=== PATIENT | male | born 1985 | race Caucasian/White ===

== ENCOUNTER 2017-07-07 04:13 | Emergency (ER) | payer BC, OTHER ==
[2017-07-07] MEDS ORDERED: ONDANSETRON 4 MG/2 ML VIAL IM STA (04:33)
[2017-07-07] MEDS ORDERED: ONDANSETRON 4 MG ODT STARTER PACK 2 TAB BTL PO STA (04:35)
--- NOTE | 2017-07-07 04:35 | ED ---
General Adult HPI - General Chief complaint: Dental/Oral Stated complaint: Dental Pain,vomiting Time Seen by Provider: 07/07/17 04:20 Source: patient, RN notes reviewed Mode of arrival: ambulatory Limitations: no limitations - History of Present Illness Initial comments: This is a 31-year-old male who presented to the emergency department complaining of vomiting 2 which started 2 hours ago. Patient denies any abdominal pain. Patient denies any diarrhea. Patient states his right sternocleidomastoid muscle is tender to palpation and he may have strained it from vomiting. Patient denies any fever or chills. Patient denies any chest pain difficulty breathing shortness of breath. Patient denies any injury or trauma that he knows of. Patient states she's not been around anyone is sick. - Related Data Previous Rx's Medication Instructions Recorded Hydrocodone/Acetaminophen [[place] 1 each PO Q6HR PRN #20 tab 09/19/16 5-325] Ibuprofen [Motrin] 600 mg PO Q6HR PRN #40 day 09/19/16 Ondansetron Odt [Zofran ODT] 4 mg PO Q8HR PRN #15 tab 09/19/16 Sulfamethoxazole/Trimethoprim 1 each PO Q12H 7 Days 09/19/16 [Bactrim DS 800-160 mg] Tamsulosin [Flomax] 0.4 mg PO DAILY #3 cap 09/19/16 Allergies Allergy/AdvReac Type Severity Reaction Status Date / Time Penicillins Allergy Rash/Hives Verified 09/19/16 14:41 venom-honey bee Allergy Swelling Verified 09/19/16 14:41 [bee venom (honey bee)] Review of Systems ROS Statement: Those systems with pertinent positive or pertinent negative responses have been documented in the HPI. ROS Other: All systems not noted in ROS Statement are negative. Past Medical History Past Medical History: No Reported History History of Any Multi-Drug Resistant Organisms: None Reported Past Surgical History: No Surgical Hx Reported Additional Past Surgical History / Comment(s): l testicle removed Past Psychological History: Anxiety Smoking Status: Current every day smoker Past Alcohol Use History: Occasional Past Drug Use History: Marijuana General Exam - General Exam Comments Initial Comments: GENERAL: Patient is well-developed and well-nourished. Patient is nontoxic and well- hydrated and is in mild distress. ENT: Neck is soft and supple. No significant lymphadenopathy is noted. Oropharynx is clear. Moist mucous membranes. Neck has full range of motion without eliciting any pain. EYES: The sclera were anicteric and conjunctiva were pink and moist. Extraocular movements were intact and pupils were equal round and reactive to light. Eyelids were unremarkable. PULMONARY: Unlabored respirations. Good breath sounds bilaterally. No audible rales rhonchi or wheezing was noted. CARDIOVASCULAR: There is a regular rate and rhythm without any murmurs gallops or rubs. ABDOMEN: Soft and nontender with normal bowel sounds. No palpable organomegaly was noted. There is no palpable pulsatile mass. SKIN: Skin is clear with no lesions or rashes and otherwise unremarkable. NEUROLOGIC: Patient is alert and oriented x3. Cranial nerves II through XII are grossly intact. Motor and sensory are also intact. Normal speech, volume and content. Symmetrical smile. MUSCULOSKELETAL: Normal extremities with adequate strength and full range of motion. LYMPHATICS: No significant lymphadenopathy is noted PSYCHIATRIC: Normal psychiatric evaluation. Limitations: no limitations Course Vital Signs 07/07/17 04:18 Temperature 97.8 F Pulse Rate 67 Respiratory 16 Rate Blood Pressure 130/85 O2 Sat by Pulse 100 Oximetry Medical Decision Making - Medical Decision Making patient only started vomiting 2 hours ago psychiatric shot of Zofran and sent him home with some Zofran ODT Disposition Clinical Impression: Acute vomiting Disposition: HOME SELF-CARE Instructions: Acute Nausea and Vomiting (ED) Referrals: None,Stated [Primary Care Provider] - 1-2 days Time of Disposition: 04:35
[2017-07-07 04:39] VITALS: BP 130/85; PULSE 67; RESP 16; TEMP 97.8
== END 2017-07-07 04:42 | disposition home or self-care (01) ==
LOC: EC 04:13
DX: R11.10 Vomiting, unspecified (principal); F17.200 Nicotine dependence, unspecified, uncomplicated; Z88.0 Allergy status to penicillin; Z91.030 Bee allergy status
CPT/HCPCS: 99283; 96372; J2405; S0119

== ENCOUNTER 2017-11-08 07:41 | Emergency (ER) | payer BC ==
--- NOTE | 2017-11-08 08:24 | ED ---
General Adult HPI - General Chief complaint: ENT Stated complaint: Ear pain Time Seen by Provider: 11/08/17 08:14 Source: patient, RN notes reviewed Mode of arrival: ambulatory Limitations: no limitations - History of Present Illness Initial comments: 32-year-old male who presents emergency room today with a chief complaint of pain to the right ear. He does admit that it's felt full as pressure. States he has been trying some peroxide with little relief. He does admit that he's had some pressure similar to this in the past but has not been getting any the wax out. Patient denies any other complaints or symptoms. Patient denies any recent fever, chills, shortness of breath, chest pain, back pain, abdominal pain , nausea or vomiting, headaches or visual changes, or any other complaints. - Related Data Previous Rx's Medication Instructions Recorded Carbamide Peroxide [Debrox Otic] 5 drops BOTH EARS BID 7 Days ml 11/08/17 Allergies Allergy/AdvReac Type Severity Reaction Status Date / Time Penicillins Allergy Rash/Hives Verified 11/08/17 08:30 venom-honey bee Allergy Swelling Verified 11/08/17 08:30 [bee venom (honey bee)] Review of Systems ROS Statement: Those systems with pertinent positive or pertinent negative responses have been documented in the HPI. ROS Other: All systems not noted in ROS Statement are negative. Past Medical History Past Medical History: No Reported History History of Any Multi-Drug Resistant Organisms: None Reported Past Surgical History: No Surgical Hx Reported Additional Past Surgical History / Comment(s): l testicle removed Past Psychological History: Anxiety Smoking Status: Current every day smoker Past Alcohol Use History: Occasional Past Drug Use History: Marijuana General Exam - General Exam Comments Initial Comments: General: The patient is awake and alert, in no distress, and does not appear acutely ill. Eye: Pupils are equal, round and reactive to light, extra-ocular movements are intact. No nystagmus. There is normal conjunctiva bilaterally. No signs of icterus. Ears, nose, mouth and throat: There are moist mucous membranes and no oral lesions. He does have cerumen impaction on the right. Neck: The neck is supple, there is no tenderness or JVD. Musculoskeletal: Normal ROM, no tenderness. Strength 5/5. Sensation intact. Pulses equal bilaterally 2+. Neurological: A&O x 3. CN II-XII intact, There are no obvious motor or sensory deficits. Coordination appears grossly intact. Speech is normal. Skin: Skin is warm and dry and no rashes or lesions are noted. Psychiatric: Cooperative, appropriate mood & affect, normal judgment. Limitations: no limitations Course Vital Signs 11/08/17 07:41 Temperature 97.4 F L Pulse Rate 71 Respiratory 18 Rate Blood Pressure 123/81 O2 Sat by Pulse 99 Oximetry Medical Decision Making - Medical Decision Making Patient did have ears irrigated by nursing staff. Does admit to improvement. Large amount of cerumen was removed. Disposition Clinical Impression: Cerumen impaction Disposition: HOME SELF-CARE Condition: Good Instructions: Cerumen Impaction (ED) Additional Instructions: Please use medication as discussed. Please follow-up with family doctor in the next 2 days of symptoms have not improved. Please return to emergency room if the symptoms increase or worsen or for any other concerns. Prescriptions: Carbamide Peroxide [Debrox Otic] 5 drops BOTH EARS BID 7 Days ml Referrals: None,Stated [Primary Care Provider] - 1-2 days Time of Disposition: 09:00
[2017-11-09 22:56] VITALS: BP 123/81; PULSE 71; RESP 18; TEMP 97.4
== END 2017-11-08 09:09 | disposition home or self-care (01) ==
LOC: EC 07:41
DX: H61.21 Impacted cerumen, right ear (principal); F17.200 Nicotine dependence, unspecified, uncomplicated; Z88.0 Allergy status to penicillin; Z91.030 Bee allergy status
CPT/HCPCS: 69209; 99282

== ENCOUNTER 2018-07-24 03:49 | Emergency (ER) | payer BC, OTHER ==
[2018-07-24 03:57] VITALS: BP 134/93; PULSE 62; RESP 20; TEMP 98.2
--- NOTE | 2018-07-24 04:30 | ED ---
General Adult HPI - General Chief complaint: Dental/Oral Stated complaint: DENTAL PAIN Time Seen by Provider: 07/24/18 04:22 Source: patient Mode of arrival: ambulatory Limitations: no limitations - History of Present Illness Initial comments: . A 32-year-old gentleman with a history of poor dentition requiring biotics and tooth extraction the past. Presents the ED today for evaluation of 2-3 days of progressively worsening dental pain. Patient reports he developed dental pain on Tuesday, he contacted his dentist he states he didn't have any available on this for 4 weeks advised. That if his dental pain worsen or he develops any concerns for infection he should come to the ER for evaluation. He reports this being he was at work and he had progressively worsening dental pain, he also felt as though he is developing some lymphadenopathy on his right side which could be indicative of infection so he came to the ER for evaluation. Patient denies any fevers, chills, nausea or vomiting. - Related Data Previous Rx's Medication Instructions Recorded Clindamycin [Cleocin] 150 mg PO Q6H 7 Days #28 capsule 07/24/18 Allergies Allergy/AdvReac Type Severity Reaction Status Date / Time Penicillins Allergy Rash/Hives Verified 07/24/18 03:57 venom-honey bee Allergy Swelling Verified 07/24/18 03:57 [bee venom (honey bee)] Review of Systems ROS Statement: Those systems with pertinent positive or pertinent negative responses have been documented in the HPI. ROS Other: All systems not noted in ROS Statement are negative. Past Medical History Past Medical History: No Reported History History of Any Multi-Drug Resistant Organisms: None Reported Past Surgical History: No Surgical Hx Reported Additional Past Surgical History / Comment(s): l testicle removed Past Psychological History: Anxiety Smoking Status: Current every day smoker Past Alcohol Use History: Occasional Past Drug Use History: Marijuana General Exam - General Exam Comments Initial Comments: GENERAL: Patient is well-developed and well-nourished. Patient is nontoxic and well- hydrated and is in no distress. Unkept appearance, Gates of cigarette smoke HENT: Normocephalic, Atraumatic. Neck is soft and supple. Mild right-sided anterior cervical lymphadenopathy Poor dentition with multiple dental caries, previous dental extractions, no obvious dental abscess Able to open his mouth fully, no trismus Normal tonsils, no elevation of the tongue or evidence of Dami's angina EYES: The sclera were anicteric and conjunctiva were pink and moist. Extraocular movements were intact and pupils were equal round and reactive to light. Eyelids were unremarkable. PULMONARY: Unlabored respirations. Good breath sounds bilaterally. No audible rales rhonchi or wheezing was noted. CARDIOVASCULAR: There is a regular rate and rhythm without any murmurs gallops or rubs. ABDOMEN: Soft and nontender with normal bowel sounds. SKIN: Skin is clear with no lesions or rashes and otherwise unremarkable. Multiple tattoos NEUROLOGIC: Patient is alert and oriented x3. Cranial nerves II through XII are grossly intact. Motor and sensory are also intact. Normal speech, volume and content. Symmetrical smile. MUSCULOSKELETAL: Normal extremities with adequate strength and full range of motion. No lower extremity swelling or edema. No calf tenderness. LYMPHATICS: No significant lymphadenopathy is noted PSYCHIATRIC: Normal psychiatric evaluation. Limitations: no limitations Limitations: no limitations Course Vital Signs 07/24/18 03:53 Temperature 98.2 F Pulse Rate 62 Respiratory 20 Rate Blood Pressure 134/93 O2 Sat by Pulse 99 Oximetry Medical Decision Making - Medical Decision Making She was seen and evaluated, history is obtained from patient. This patient has a history of dental infections, has progressively worsening dental pain for 3 days duration and is scheduled to see his dentist in 4 weeks. At this time he does have significant dental caries and some redness of his gums, I will prescribe by mouth clindamycin as he does have a penicillin ALLERGY. Patient not requesting any pain medicines. I advised the patient to contact his dentist again Tuesday morning and advised them that he had to come to the emergency department and see if he can get a sooner appointment. In addition I will refer her to multiple outpatient and this. All questions pertaining care were answered best my ability patient was discharged home in stable condition. Return parameters were discussed. Disposition Clinical Impression: Dental caries Disposition: HOME SELF-CARE Condition: Stable Instructions: Dental Caries (ED), Toothache (ED) Prescriptions: Clindamycin [Cleocin] 150 mg PO Q6H 7 Days #28 capsule Is patient prescribed a controlled substance at d/c from ED?: No Referrals: None,Stated [Primary Care Provider] - 1-2 days Madai Ricketts DDS [STAFF PHYSICIAN] - 1-2 days Parnell,Jose Ramon, DDS [STAFF PHYSICIAN] - 1-2 days Tanisha Jackson DDS [STAFF PHYSICIAN] - 1-2 days
== END 2018-07-24 04:38 | disposition home or self-care (01) ==
LOC: EC 03:49
DX: K02.9 Dental caries, unspecified (principal); F17.210 Nicotine dependence, cigarettes, uncomplicated; Z88.0 Allergy status to penicillin; Z91.030 Bee allergy status
CPT/HCPCS: 99282

== ENCOUNTER 2018-09-11 01:32 | Emergency (ER) | payer BC ==
[2018-09-11 01:38] VITALS: BP 126/87; PULSE 60; RESP 20; TEMP 97.6
[2018-09-11] MEDS ORDERED: OXYMETAZOLINE 0.05% NASL SPRAY 1 SPRAY BOTTLE NASAL STA (02:02)
[2018-09-11] MEDS ORDERED: IBUPROFEN 600 MG TAB PO STA (02:02)
--- NOTE | 2018-09-11 02:07 | ED ---
ENT HPI - General Chief complaint: ENT Stated complaint: congestion Time Seen by Provider: 09/11/18 01:43 Source: patient Mode of arrival: ambulatory Limitations: no limitations - History of Present Illness Initial comments: This patient is 33-year-old man who complains of sinus pressure and pain. Symptoms started yesterday with a cough and congestion. Today he is having sinus pain. No fever or chills. No change in vision. No diplopia. MD complaint: other (Sinus pressure and pain) Severity: moderate Quality: aching, other Consistency: constant Improves with: none Worsens with: none - Related Data Previous Rx's Medication Instructions Recorded Ibuprofen [Motrin] 600 mg PO Q8HR PRN #20 tab 09/11/18 Loratadine-Pseudoeph 5-120 mg 1 each PO Q12HR #24 tab 09/11/18 [Claritin-D 12 HR] Mometasone Furoate [Nasonex Nasal 2 spr EA NOSTRIL DAILY #1 bottle 09/11/18 [place]] Allergies Allergy/AdvReac Type Severity Reaction Status Date / Time Penicillins Allergy Rash/Hives Verified 07/24/18 03:57 venom-honey bee Allergy Swelling Verified 07/24/18 03:57 [bee venom (honey bee)] Review of Systems ROS Statement: Those systems with pertinent positive or pertinent negative responses have been documented in the HPI. ROS Other: All systems not noted in ROS Statement are negative. Constitutional: Denies: fever, chills ENT: Reports: ear pain, congestion. Denies: hearing loss Respiratory: Reports: cough. Denies: dyspnea, wheezes Neurological: Reports: headache. Denies: weakness, numbness, paresthesias Past Medical History Past Medical History: No Reported History History of Any Multi-Drug Resistant Organisms: None Reported Past Surgical History: No Surgical Hx Reported Additional Past Surgical History / Comment(s): l testicle removed Past Psychological History: Anxiety Smoking Status: Current every day smoker Past Alcohol Use History: None Reported Past Drug Use History: Marijuana General Exam Limitations: no limitations General appearance: alert, in no apparent distress Head exam: Present: atraumatic, normocephalic Eye exam: Present: normal appearance, PERRL, EOMI. Absent: scleral icterus, conjunctival injection, periorbital swelling, periorbital tenderness ENT exam: Present: normal oropharynx, TM's normal bilaterally Neck exam: Present: normal inspection, full ROM. Absent: tenderness, meningismus Respiratory exam: Present: normal lung sounds bilaterally. Absent: respiratory distress, wheezes, rales, rhonchi, stridor Cardiovascular Exam: Present: regular rate, normal rhythm, normal heart sounds. Absent: systolic murmur, diastolic murmur, rubs, gallop GI/Abdominal exam: Present: soft. Absent: distended, tenderness, guarding, rebound Neurological exam: Present: alert, oriented X3, CN II-XII intact, normal gait. Absent: motor sensory deficit Skin exam: Present: warm, dry, intact, normal color. Absent: rash Course Vital Signs 09/11/18 01:35 Temperature 97.6 F Pulse Rate 60 Respiratory 20 Rate Blood Pressure 126/87 O2 Sat by Pulse 100 Oximetry Disposition Clinical Impression: Acute sinusitis Disposition: HOME SELF-CARE Condition: Good Instructions: Sinusitis (ED) Prescriptions: Ibuprofen [Motrin] 600 mg PO Q8HR PRN #20 tab PRN Reason: Pain Loratadine-Pseudoeph 5-120 mg [Claritin-D 12 HR] 1 each PO Q12HR #24 tab Mometasone Furoate [Nasonex Nasal [place]] 2 spr EA NOSTRIL DAILY #1 bottle Is patient prescribed a controlled substance at d/c from ED?: No Referrals: None,Stated [Primary Care Provider] - 1-2 days Pina Bazzi MD [STAFF PHYSICIAN] - 1-2 days
--- NOTE | 2018-09-14 03:06 | CDI ---
Documentation Clarification OP Dear Odilon HILARIO MD Please do addendum to ED report for HPI , Physical exam and MDM. Thank you, Colleen Gonsales Fuse Coiler If you have any question, Please contact front desk manager at [phone] [facility]
== END 2018-09-11 02:37 | disposition home or self-care (01) ==
LOC: EC 01:32
DX: J01.90 Acute sinusitis, unspecified (principal); F17.200 Nicotine dependence, unspecified, uncomplicated; Z88.0 Allergy status to penicillin; Z91.030 Bee allergy status
CPT/HCPCS: 99283

== ENCOUNTER 2018-10-03 13:15 | Emergency (ER) | payer BC ==
[2018-10-03 13:30] VITALS: TEMP 98.3
[2018-10-03] MEDS ORDERED: FLUTICASONE 50MCG/SPRAY NASAL 16GM EA NOSTRIL PRN (14:56)
--- NOTE | 2018-10-03 15:30 | ED ---
General Adult HPI - General Chief complaint: ENT Stated complaint: Sinus infection Source: patient, RN notes reviewed, old records reviewed Mode of arrival: ambulatory Limitations: no limitations - History of Present Illness Initial comments: 33-year-old male patient with no pertinent past medical history presents in ED with approximately 5 days of maxillary sinus congestion, rhinitis. Patient has a long history of sinus infections. Patient states that this feels the same as ones she has had in the past. Patient primary complaint is maxillary sinus pressure, rhinitis. Patient denies fever/chills, nausea vomiting diarrhea, chest pain shortness of breath, abdominal pain, dysuria, or any other symptoms. Systemic: Pt denies fatigue, myalgia, fever/chills, rash. Pt denies weakness, night sweats, weight loss. Neuro: Pt denies headache, visual disturbances, syncope or pre-syncope. HEENT: Pt denies ocular discharge or irritation, otalgia, pharyngitis or notable lymphadenopathy. Cardiopulmonary: Pt denies chest pain, SOB, heart palpitations, dyspnea on exertion. Abdominal/GI: Pt denies abdominal pain, n/v/d. : Pt denies dysuria, burning w/ urination, frequency/urgency. Denies new onset urinary or bowel incontinence. MSK: Pt denies myalgia, loss of strength or function in extremities. - Related Data Previous Rx's Medication Instructions Recorded Ibuprofen [Motrin] 600 mg PO Q8HR PRN #20 tab 09/11/18 Loratadine-Pseudoeph 5-120 mg 1 each PO Q12HR #24 tab 09/11/18 [Claritin-D 12 HR] Mometasone Furoate [Nasonex Nasal 2 spr EA NOSTRIL DAILY #1 bottle 09/11/18 [place]] Doxycycline [Vibramycin] 100 mg PO BID 10 Days #20 capsule 10/03/18 Allergies Allergy/AdvReac Type Severity Reaction Status Date / Time Penicillins Allergy Rash/Hives Verified 10/03/18 13:27 venom-honey bee Allergy Swelling Verified 10/03/18 13:27 [bee venom (honey bee)] Review of Systems ROS Statement: Those systems with pertinent positive or pertinent negative responses have been documented in the HPI. ROS Other: All systems not noted in ROS Statement are negative. Past Medical History Past Medical History: No Reported History History of Any Multi-Drug Resistant Organisms: None Reported Past Surgical History: No Surgical Hx Reported Additional Past Surgical History / Comment(s): l testicle removed Past Psychological History: Anxiety Smoking Status: Current every day smoker Past Alcohol Use History: None Reported Past Drug Use History: None Reported, Marijuana General Exam - General Exam Comments Initial Comments: Constitutional: NAD, AOX3, Pt has pleasant affect. HEENT: NC/AT, trachea midline, neck supple, no cervical lymphadenopathy. Posterior pharynx non erythematous, without exudates. External ears appear normal, without discharge. Mucous membranes moist. Eyes PERRLA, EOM intact. There is no scleral icterus. No pallor noted. Sinus pressure reproducible upon palpation. No frontal sinus pressure. Nares clear bilaterally Cardiopulmonary: RRR, no murmurs, rubs or gallops, no JVD noted. Lungs CTAB in anterior and posterior ngo. No peripheral edema. Abdominal exam: Abdomen soft and non-distended. Abdomen non-tender to palpation in all 4 quadrants. Bowel sounds active in LLQ. No hepatosplenomegaly. Neuro: CN II-XII grossly intact. Limitations: no limitations Course Vital Signs 10/03/18 13:27 Temperature 98.3 F Pulse Rate 94 Respiratory 18 Rate Blood Pressure 130/91 O2 Sat by Pulse 100 Oximetry Medical Decision Making - Medical Decision Making 33-year-old male patient presents in ED with sinus pressure, sinus congestion. Patient is afebrile, vital signs stable. Patient has a long history of sinus congestion/infections. Patient states that this feels that baseline with sinus infections she has had the past. 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 Physical exam displayed maxillary sinus pressure reproducible by palpation. No other pathologic findings identified via Physical exam. Patient has ALLERGY to penicillin. Patient to be discharged with doxycycline for acute sinusitis. Patient to follow up with PCP in 1-2 days. Patient to return to ED if any new signs or symptoms develop including, worsening sinus pressure, headache, nausea vomiting diarrhea, fever chills, chest pain, shortness of breath or any other new symptoms. Case discussed with Dr. Storey. Disposition Clinical Impression: Acute sinusitis Disposition: HOME SELF-CARE Condition: Good Instructions: Sinusitis (ED) Additional Instructions: Patient to adhere to previously discussed treatment plan and will take medication(s) as directed. Patient to follow up with PCP in 1-2 days. Patient to return to ED if symptoms do not improve. Prescriptions: Doxycycline [Vibramycin] 100 mg PO BID 10 Days #20 capsule Is patient prescribed a controlled substance at d/c from ED?: No Referrals: None,Stated [Primary Care Provider] - 1-2 days Time of Disposition: 15:32
--- NOTE | 2018-10-03 15:47 | ED ---
Medical Decision Making - Medical Decision Making added rx for flonase Disposition Clinical Impression: Acute sinusitis Disposition: HOME SELF-CARE Condition: Good Instructions: Sinusitis (ED) Additional Instructions: Patient to adhere to previously discussed treatment plan and will take medication(s) as directed. Patient to follow up with PCP in 1-2 days. Patient to return to ED if symptoms do not improve. Prescriptions: Doxycycline [Vibramycin] 100 mg PO BID 10 Days #20 capsule Fluticasone Propionate [Flonase Allergy Relief] 1 - 2 spray EA NOSTRIL DAILY 5 Days ml Is patient prescribed a controlled substance at d/c from ED?: No Referrals: None,Stated [Primary Care Provider] - 1-2 days
[2018-10-03 15:51] VITALS: BP 119/78; PULSE 60; RESP 16
== END 2018-10-03 15:49 | disposition home or self-care (01) ==
LOC: EC 13:15
DX: J01.90 Acute sinusitis, unspecified (principal); F17.200 Nicotine dependence, unspecified, uncomplicated; Z88.0 Allergy status to penicillin; Z91.030 Bee allergy status
CPT/HCPCS: 99283

== ENCOUNTER 2018-12-19 15:46 | Emergency (ER) | payer BC ==
[2018-12-19 15:54] VITALS: RESP 18
[2018-12-19] MEDS ORDERED: SODIUM CHLORIDE 0.9% 1,000 ML IV STA (15:57)
[2018-12-19] MEDS ORDERED: ONDANSETRON 4 MG/2 ML VIAL IVP STA (15:57)
--- NOTE | 2018-12-19 16:30 | XR ---
Abdomen HISTORY: Abdomen pain, nausea vomiting diarrhea Frontal view the abdomen on 2 images Correlated to prior abdomen 09/19/2016 Lung bases are clear. There is no evident bowel obstruction or pneumoperitoneum. Mild spinal curvatur e is present. Some retained fecal debris present within the colon. IMPRESSION: Nonobstructive bowel gas pattern. Follow-up as indicated.
--- NOTE | 2018-12-19 16:52 | ED ---
Abdominal Pain HPI - General Chief Complaint: Abdominal Pain Stated Complaint: vomiting/diarrhea Time Seen by Provider: 12/19/18 15:56 Source: patient Mode of arrival: ambulatory Limitations: no limitations - History of Present Illness Initial Comments: 33-year-old male presenting today for chief complaint of abdominal cramping nausea vomiting diarrhea. He states he feels as though he has food poisoning, he states symptoms began about 2 hours prior to presentation at work. He states he left work or evaluation. Patient does not have any current vomiting and has not had diarrhea since presentation in the ER. Patient denies any hemoptysis, melena or hematochezia. He has severe abdominal pain he states it feels as though he has food poisoning, dull aching in the right upper quadrant. He states it is more of an ache rather than a severe pain. Patient denies any lower abdominal pain. Patient denies any chest pain, dyspnea, dyspnea exertion, headache, fever, chills, night sweats. Remaining review of systems negative, patient denies any recent shortness of breath, chest pain, back pain, numbness or tingling, dysuria or hematuria, headaches or visual changes, or any other complaints.. Patient states he just needs a work note. Upon arrival patient's vital signs within acceptable limits. Patient is well-appearing no signs of acute distress. - Related Data Home Medications Medication Instructions Recorded Confirmed No Known Home Medications 12/19/18 12/19/18 Allergies Allergy/AdvReac Type Severity Reaction Status Date / Time Penicillins Allergy Rash/Hives Verified 12/19/18 16:54 venom-honey bee Allergy Swelling Verified 12/19/18 16:54 [bee venom (honey bee)] Review of Systems ROS Statement: Those systems with pertinent positive or pertinent negative responses have been documented in the HPI. ROS Other: All systems not noted in ROS Statement are negative. Past Medical History Past Medical History: No Reported History History of Any Multi-Drug Resistant Organisms: None Reported Past Surgical History: No Surgical Hx Reported Additional Past Surgical History / Comment(s): l testicle removed Past Psychological History: Anxiety Smoking Status: Current every day smoker Past Alcohol Use History: None Reported Past Drug Use History: None Reported, Marijuana General Exam - General Exam Comments Initial Comments: General: The patient is awake and alert, in no distress, and does not appear acutely ill. Eye: Pupils are equal, round and reactive to light, extra-ocular movements are intact. No nystagmus. There is normal conjunctiva bilaterally. No signs of icterus. Ears, nose, mouth and throat: There are moist mucous membranes and no oral lesions. Neck: The neck is supple, there is no tenderness or JVD. Cardiovascular: There is a regular rate and rhythm. No murmur, rub or gallop is appreciated. Respiratory: Lungs are clear to auscultation, respirations are non-labored, breath sounds are equal. No wheezes, stridor, rales, or rhonchi. Gastrointestinal: Soft, non-distended, non-tender abdomen without masses or organomegaly noted. There is no rebound or guarding present. No CVA tenderness. Bowel sounds are unremarkable. Musculoskeletal: Normal ROM, no tenderness. Strength 5/5. Sensation intact. Pulses equal bilaterally 2+. Neurological: A&O x 3. CN II-XII intact, There are no obvious motor or sensory deficits. Coordination appears grossly intact. Speech is normal. Skin: Skin is warm and dry and no rashes or lesions are noted. Psychiatric: Cooperative, appropriate mood & affect, normal judgment. Limitations: no limitations Course Vital Signs 12/19/18 12/19/18 15:51 18:30 Temperature 98.6 F 98 F Pulse Rate 74 57 L Respiratory 18 18 Rate Blood Pressure 143/77 112/74 O2 Sat by Pulse 99 97 Oximetry Medical Decision Making - Medical Decision Making Patient feels well hydrated upon examination. Patient has not had episodes of emesis or diarrhea while in the emergency department. Patient states he would like work note. Abdominal exam benign. No findings concerning for peritoneal irritation. No lower abdominal pain. Patient was given order for IV hydration however due to high volumes in the emergency department he was unable to receive these within 2 hours, he was requesting discharge and refused the intravenous fluids. Patient was given Zofran IV push for nausea. Patient laboratory studies within acceptable limits. Patient does not appear dehydrated. Patient's nausea vomiting diarrhea is acute, most likely gastroenteritis-however patient was advised to return for any worsening or concerning symptoms as his diagnosis is not definitive given early presentation. Patient given starting pack for Zofran to take home as needed for nausea. Patient provided work no. Patient discharged stable condition appearing well after discussing the case with attending provider Dr. Hernandes who agreed impression and plan. - Lab Data Result diagrams: 12/19/18 16:35 12/19/18 16:35 Lab Results 12/19/18 12/19/18 Range/Units 16:35 16:35 WBC 8.8 (3.8-10.6) k/uL RBC 4.37 (4.30-5.90) m/uL Hgb 13.4 (13.0-17.5) gm/dL Hct 41.1 (39.0-53.0) % MCV 94.1 (80.0-100.0) fL MCH 30.7 (25.0-35.0) pg MCHC 32.6 (31.0-37.0) g/dL RDW 12.7 (11.5-15.5) % Plt Count 218 (150-450) k/uL Neutrophils % 55 % Lymphocytes % 33 % Monocytes % 8 % Eosinophils % 1 % Basophils % 1 % Neutrophils # 4.9 (1.3-7.7) k/uL Lymphocytes # 2.9 (1.0-4.8) k/uL Monocytes # 0.7 (0-1.0) k/uL Eosinophils # 0.1 (0-0.7) k/uL Basophils # 0.1 (0-0.2) k/uL Sodium 140 (137-145) mmol/L Potassium 4.5 (3.5-5.1) mmol/L Chloride 109 H (98-107) mmol/L Carbon Dioxide 24 (22-30) mmol/L Anion Gap 7 mmol/L BUN 21 H (9-20) mg/dL Creatinine 1.14 (0.66-1.25) mg/dL Est GFR (CKD-EPI)AfAm >90 (>60 ml/min/1.73 sqM) Est GFR (CKD-EPI)NonAf 85 (>60 ml/min/1.73 sqM) Glucose 88 (74-99) mg/dL Calcium 9.5 (8.4-10.2) mg/dL Total Bilirubin 0.8 (0.2-1.3) mg/dL AST 17 (17-59) U/L ALT 35 (21-72) U/L Alkaline Phosphatase 51 (38-126) U/L Total Protein 6.5 (6.3-8.2) g/dL Albumin 4.0 (3.5-5.0) g/dL Amylase 51 (30-110) U/L Lipase 77 (23-300) U/L Disposition Clinical Impression: Nausea vomiting and diarrhea Disposition: HOME SELF-CARE Condition: Good Instructions (If sedation given, give patient instructions): Gastroenteritis ( DC), Acute Nausea and Vomiting (ED) Additional Instructions: Please use medication as discussed. Please follow-up with family doctor in the next 2 days.. Please return to emergency room if the symptoms increase or worsen or for any other concerns. Is patient prescribed a controlled substance at d/c from ED?: No Referrals: None,Stated [Primary Care Provider] - 1-2 days [facility] [NON-STAFF] - 1-2 days Time of Disposition: 18:00
[2018-12-19 17:02] LABS: Basophils # (A) 0.1 k/uL (0-0.2); Basophils % (A) 1 %; Eosinophils # (A) 0.1 k/uL (0-0.7); Eosinophils % (A) 1 %; HCT 41.1 % (39.0-53.0); HGB 13.4 gm/dL (13.0-17.5); Lymphocytes # (A) 2.9 k/uL (1.0-4.8); Lymphocytes % (A) 33 %; MCH 30.7 pg (25.0-35.0); MCHC 32.6 g/dL (31.0-37.0); MCV 94.1 fL (80.0-100.0); Mean Platelet Volume 8.5; Monocytes # (A) 0.7 k/uL (0-1.0); Monocytes % (A) 8 %; Neutrophils # (A) 4.9 k/uL (1.3-7.7); Neutrophils % (A) 55 %; Platelet Count 218 k/uL (150-450); RBC 4.37 m/uL (4.30-5.90); RDW 12.7 % (11.5-15.5); WBC 8.8 k/uL (3.8-10.6)
[2018-12-19 17:18] LABS: ALT 35 U/L (21-72); AST 17 U/L (17-59); Alkaline Phosphatase 51 U/L (38-126); Amylase 51 U/L (30-110); Anion Gap 7 mmol/L; Blood Urea Nitrogen 21 mg/dL (9-20); Calcium 9.5 mg/dL (8.4-10.2); Carbon Dioxide 24 mmol/L (22-30); Chloride 109 mmol/L (98-107); Glucose 88 mg/dL (74-99); Lipase 77 U/L (23-300); Potassium 4.5 mmol/L (3.5-5.1); Sodium 140 mmol/L (137-145); Total Bilirubin 0.8 mg/dL (0.2-1.3); Total Protein 6.5 g/dL (6.3-8.2)
[2018-12-19] MEDS ORDERED: ONDANSETRON 4 MG ODT STARTER PACK 2 TAB BTL PO STA (18:01)
[2018-12-19 18:32] VITALS: BP 112/74; PULSE 57; TEMP 98
== END 2018-12-19 18:30 | disposition home or self-care (01) ==
LOC: EC 15:46
DX: R11.2 Nausea with vomiting, unspecified (principal); R19.7 Diarrhea, unspecified; R10.11 Right upper quadrant pain; F17.200 Nicotine dependence, unspecified, uncomplicated; Z88.0 Allergy status to penicillin; Z91.030 Bee allergy status; Z90.79 Acquired absence of other genital organ(s); Z53.20 Procedure and treatment not carried out because of patient's decision for unspecified reasons
CPT/HCPCS: 36415; 80053; 82150; 83690; 85025; 74018; 99284; 96374; J2405; S0119

== ENCOUNTER 2019-02-13 12:54 | Emergency (ER) | payer BC, OTHER ==
[2019-02-13 13:00] VITALS: BP 132/85; PULSE 70; RESP 18; TEMP 98.3
--- NOTE | 2019-02-13 13:13 | ED ---
URI HPI - General Chief Complaint: Upper Respiratory Infection Stated Complaint: throat & chest pain Time Seen by Provider: 02/13/19 13:04 Source: patient, RN notes reviewed Mode of arrival: ambulatory Limitations: no limitations - History of Present Illness Initial Comments: This a 33-year-old male presents emergency department tingling or sore throat. Patient states started on Tuesday. Patient states Pascual worsen. Patient states very painful to swallow but no difficult to swelling. Patient states she's also slight cough. Patient states cough is nonproductive. Denies any sinus congestion, ear pain, headache or neck stiffness. Patient had subjective fever and chills. Patient is a daily smoker. - Related Data Previous Rx's Medication Instructions Recorded Azithromycin [Zithromax Z-pack] 0 mg PO DIRECTED #1 pack 02/13/19 predniSONE 50 mg PO DAILY #5 tab 02/13/19 Allergies Allergy/AdvReac Type Severity Reaction Status Date / Time Penicillins Allergy Rash/Hives Verified 02/13/19 13:00 venom-honey bee Allergy Swelling Verified 02/13/19 13:00 [bee venom (honey bee)] Review of Systems ROS Statement: Those systems with pertinent positive or pertinent negative responses have been documented in the HPI. ROS Other: All systems not noted in ROS Statement are negative. Past Medical History Past Medical History: No Reported History History of Any Multi-Drug Resistant Organisms: None Reported Past Surgical History: No Surgical Hx Reported Additional Past Surgical History / Comment(s): l testicle removed Past Psychological History: Anxiety Smoking Status: Current every day smoker Past Alcohol Use History: None Reported Past Drug Use History: Marijuana General Exam Limitations: no limitations General appearance: alert, in no apparent distress Head exam: Present: atraumatic, normocephalic, normal inspection Eye exam: Present: normal appearance, PERRL, EOMI. Absent: scleral icterus, conjunctival injection, periorbital swelling ENT exam: Present: mucous membranes moist, TM's normal bilaterally, normal external ear exam. Absent: normal oropharynx (Erythema, mild swelling no exudates) Neck exam: Present: normal inspection, full ROM. Absent: tenderness, meningismus, lymphadenopathy Respiratory exam: Present: wheezes. Absent: normal lung sounds bilaterally, respiratory distress, rales, rhonchi, stridor Cardiovascular Exam: Present: regular rate, normal rhythm, normal heart sounds. Absent: systolic murmur, diastolic murmur, rubs, gallop, clicks Course Vital Signs 02/13/19 12:58 Temperature 98.3 F Pulse Rate 70 Respiratory 18 Rate Blood Pressure 132/85 O2 Sat by Pulse 100 Oximetry Medical Decision Making - Medical Decision Making I counseled the patient for smoking cessation for greater than 3 minutes. 33-year-old presented for URI symptoms. Patient has clinical strep pharyngitis, bronchitis. Patient we 3 given antibiotics and steroids. Disposition Clinical Impression: Bronchitis, Pharyngitis Disposition: HOME SELF-CARE Condition: Stable Instructions (If sedation given, give patient instructions): Upper Respiratory Infection (ED) Additional Instructions: Please return to the Emergency Department if symptoms worsen or any other concerns. Prescriptions: predniSONE 50 mg PO DAILY #5 tab Azithromycin [Zithromax Z-pack] 0 mg PO DIRECTED #1 pack Is patient prescribed a controlled substance at d/c from ED?: No Referrals: None,Stated [Primary Care Provider] - 1-2 days Time of Disposition: 13:12
== END 2019-02-13 13:31 | disposition home or self-care (01) ==
LOC: EC 12:54
DX: J02.9 Acute pharyngitis, unspecified (principal); J40 Bronchitis, not specified as acute or chronic; F17.200 Nicotine dependence, unspecified, uncomplicated; Z71.6 Tobacco abuse counseling; Z88.0 Allergy status to penicillin; Z91.030 Bee allergy status
CPT/HCPCS: 99284; 99406